=== PATIENT | female | born 1960 ===

== ENCOUNTER 2023-03-11 18:33 | Emergency (ER) | payer BC ==
[2023-03-11] MEDS ORDERED: Sodium Chloride 0.9% 10 ML Syringe FLUSH PRN (20:21)
[2023-03-11] MEDS ORDERED: Sodium Chloride 0.9% 1,000 ML IV ONE (20:21)
[2023-03-11] MEDS ORDERED: Loperamide 2 MG Cap PO ONE (20:22)
[2023-03-11 20:54] LABS: BASOPHILS ABSOLUTE AUTO 0.03 K/mm3 (0.01-0.08); BASOPHILS PERCENT AUTO 0.1 % (0.1-1.2); EOSINOPHILS PERCENT AUTO 0 (0.7-5.8); HEMATOCRIT 43.1 % (34.1-44.9); IMMATURE GRAN ABSOLUTE AUTO 0.03 K/mm3 (0.00-0.10); IMMATURE GRAN PERCENT AUTO 0.1 % (<=1.0); LYMPHOCYTES ABSOLUTE AUTO 0.34 K/mm3 (1.18-3.74); LYMPHOCYTES PERCENT AUTO 1.6 % (19.3-51.7); MEAN CORPUSCULAR HEMOGLOBIN 30.7 pg (25.6-32.2); MEAN CORPUSCULAR HGB CONC 34.8 g/dl (32.2-35.5); MEAN CORPUSCULAR VOLUME 88.3 fl (79.4-94.8); MEAN PLATELET VOLUME 9.4 fl (9.4-12.3); MONOCYTES ABSOLUTE AUTO 0.95 K/mm3 (0.24-0.36); MONOCYTES PERCENT AUTO 4.6 % (4.7-12.5); NEUTROPHILS ABSOLUTE AUTO 19.32 K/mm3 (1.56-6.13); NEUTROPHILS PERCENT AUTO 93.6 % (34.0-71.1); PLATELET COUNT,PLT 285 K/mm3 (182-369); RED BLOOD CELL COUNT 4.88 M/mm3 (3.98-5.22); WHITE BLOOD CELL COUNT,WBC 20.67 K/mm3 (3.98-10.04)
[2023-03-11 21:20] LABS: A/G RATIO 0.9 (1-2); ALBUMIN 3.5 g/dl (3.4-5.0); ANION GAP 13.1 (5-15); BILIRUBIN TOTAL 1.8 mg/dL (0.2-1.0); BUN/CREATININE RATIO 15.8 (14-18); CALCIUM 9.3 mg/dL (8.5-10.1); CREATININE 1.2 mg/dL (0.55-1.02); EST CRCL DRUG DOSING (CG) 47.88 mL/min; POTASSIUM,K 3.1 mEq/L (3.5-5.1); PROTEIN TOTAL,TP 7.3 g/dl (6.4-8.2)
[2023-03-11 21:43] LABS: SLIDE REVIEW ABNORMAL SMEAR
[2023-03-11] MEDS ORDERED: Potassium Chloride 20 MEQ Tab.ER PO ONE (22:58)
== END 2023-03-11 23:45 | disposition home or self-care (01) ==
LOC: JD.ED 18:33 → SUPCPDRO 18:33 → JD.ED 23:45
DX: A08.4 Viral intestinal infection, unspecified (principal); E87.6 Hypokalemia
CPT/HCPCS: 36415; 80053; 85025; 96360; 99284; A9270; J3490; J7030; 99283